=== PATIENT | male | born 1930 | race Caucasian/White ===

== ENCOUNTER 2016-07-13 14:14 | Inpatient (IN) | payer MEDICARE ==
[2016-07-13 16:01] LABS: Basophils % (A) 1 %; CH 31.7; CHCM 34.8; Eosinophils # (A) 0.1 k/uL (0-0.7); Eosinophils % (A) 1 %; HCT 40.6 % (39.0-53.0); HDW 2.71; HGB 13.2 gm/dL (13.0-17.5); Luc # (Auto) 0.17; Luc % (Auto) 2; Lymphocytes # (A) 1.4 k/uL (1.0-4.8); Lymphocytes % (A) 20 %; MCH 29.8 pg (25.0-35.0); MCHC 32.6 g/dL (31.0-37.0); MCV 91.5 fL (80.0-100.0); Mean Platelet Volume 7.2; Monocytes # (A) 0.6 k/uL (0-1.0); Monocytes % (A) 9 %; Neutrophils # (A) 4.7 k/uL (1.3-7.7); Neutrophils % (A) 67 %; RBC 4.44 m/uL (4.30-5.90); WBC 7.1 k/uL (3.8-10.6); WBC (Perox) 7.06
[2016-07-13 16:04] LABS: ALT 33 U/L (21-72); AST 24 U/L (17-59); Alkaline Phosphatase 112 U/L (38-126); Anion Gap 14 mmol/L; Blood Urea Nitrogen 17 mg/dL (9-20); Calcium 9.6 mg/dL (8.4-10.2); Carbon Dioxide 24 mmol/L (22-30); Chloride 104 mmol/L (98-107); Glucose 101 mg/dL (74-99); Magnesium 1.7 mg/dL (1.6-2.3); Non-African American GFR(MDRD) >60 (>60 ml/min/1.73 sqM); Potassium 3.8 mmol/L (3.5-5.1); Sodium 142 mmol/L (137-145); Total Bilirubin 0.8 mg/dL (0.2-1.3); Total Protein 7.4 g/dL (6.3-8.2)
--- NOTE | 2016-07-13 16:04 | XR ---
EXAMINATION TYPE: XR chest 1V portable DATE OF EXAM: 07/13/2016 3:57 PM COMPARISON: 05/23/2013 INDICATION: Pain altered mental status history of heart attack TECHNIQUE: Single frontal view of the chest is obtained. FINDINGS: The heart size is normal. The pulmonary vasculature is normal. The lungs are clear. IMPRESSION: 1. No acute pulmonary process.
[2016-07-13 16:14] LABS: Creatine Kinase 208 U/L (55-170)
--- NOTE | 2016-07-13 16:23 | ED ---
Psych HPI - General Source: patient, family, RN notes reviewed Mode of arrival: wheelchair - History of Present Illness MD Complaint: other <Billy Pappas - Last Filed: 07/13/16 16:55> <Keegan Cannon - Last Filed: 07/13/16 20:39> <Dallin Bryant - Last Filed: 07/13/16 23:55> - General Chief Complaint: Psychiatric Symptoms Stated Complaint: Mental Health Time Seen by Provider: 07/13/16 14:20 - History of Present Illness Initial Comments: This is a 85-year-old male history of dementia who is brought in by family for evaluation for abnormal behavior. He did very combative. His was very to for many many years is not home because of rehab after medical treatment. He has become confused verbally abusive verbally combative. Family brought him in for evaluation. No reports of fevers chills nausea vomiting sweats or trauma. ( Billy Pappas) - Related Data Home Medications Medication Instructions Recorded Confirmed Atorvastatin [Lipitor] 20 mg PO DAILY 07/13/16 07/13/16 Donepezil [Aricept] 10 mg PO HS 07/13/16 07/13/16 Levothyroxine Sodium [Synthroid] 50 mcg PO DAILY 07/13/16 07/13/16 Lisinopril [Zestril] 20 mg PO DAILY 07/13/16 07/13/16 Omeprazole [PriLOSEC] 20 mg PO AC-BRKFST 07/13/16 07/13/16 traZODone HCL 50 mg PO BID 07/13/16 07/13/16 Allergies Allergy/AdvReac Type Severity Reaction Status Date / Time No Known Allergies Allergy Verified 07/13/16 14:37 Review of Systems ROS Other: All systems not noted in ROS Statement are negative. <Billy Pappas - Last Filed: 07/13/16 16:55> ROS Other: All systems not noted in ROS Statement are negative. <Keegan Cannon - Last Filed: 07/13/16 20:39> ROS Other: All systems not noted in ROS Statement are negative. <Dallin Bryant - Last Filed: 07/13/16 23:55> ROS Statement: Those systems with pertinent positive or pertinent negative responses have been documented in the HPI. Past Medical History Past Medical History: Dementia, GERD/Reflux, Hyperlipidemia, Thyroid Disorder History of Any Multi-Drug Resistant Organisms: None Reported Past Surgical History: Heart Catheterization With Stent, Orthopedic Surgery Past Psychological History: No Psychological Hx Reported Smoking Status: Never smoker Past Alcohol Use History: Occasional Past Drug Use History: None Reported <Billy Pappas - Last Filed: 07/13/16 16:55> General Exam Limitations: altered mental status General appearance: alert, in no apparent distress Head exam: Present: atraumatic, normocephalic, normal inspection Eye exam: Present: normal appearance, PERRL, EOMI. Absent: scleral icterus, conjunctival injection, periorbital swelling ENT exam: Present: normal exam, mucous membranes moist Neck exam: Present: normal inspection. Absent: tenderness, meningismus, lymphadenopathy Respiratory exam: Present: normal lung sounds bilaterally. Absent: respiratory distress, wheezes, rales, rhonchi, stridor Cardiovascular Exam: Present: normal rhythm, tachycardia, normal heart sounds. Absent: systolic murmur, diastolic murmur, rubs, gallop, clicks GI/Abdominal exam: Present: soft, normal bowel sounds. Absent: distended, tenderness, guarding, rebound, rigid Extremities exam: Present: normal inspection, full ROM, normal capillary refill. Absent: tenderness, pedal edema, joint swelling, calf tenderness Back exam: Present: normal inspection Neurological exam: Present: alert, oriented X3, CN II-XII intact Psychiatric exam: Present: normal affect, normal mood Skin exam: Present: warm, dry, intact, normal color. Absent: rash <Billy Pappas - Last Filed: 07/13/16 16:55> <Keegan Cannon - Last Filed: 07/13/16 20:39> <Dallin Bryant - Last Filed: 07/13/16 23:55> - General Exam Comments Initial Comments: Is a well-developed well-nourished awake alert male the patient was noted to be very combative upon arrival and did require 4-point restraints initially. (Billy Pappas) Course <Billy Pappas - Last Filed: 07/13/16 16:55> <Keegan Cannon - Last Filed: 07/13/16 20:39> <Dallin Bryant - Last Filed: 07/13/16 23:55> Vital Signs 07/13/16 07/13/1607/13/17 14:37 17:35 23:27 Temperature 97.4 F L Pulse Rate 130 H 87 89 Respiratory 18 18 20 Rate Blood Pressure 163/78 151/85 163/89 O2 Sat by Pulse 97 97 96 Oximetry - Reevaluation(s) Reevaluation #1: 07/13/16 16:57 The patient is more cooperative at this time. He is agreed to go for CAT scan. (Billy Pappas) Reevaluation #2: 07/13/16 16:57 The patient will be endorsed to Dr. Cannon who will make the final disposition. ( iBlly Pappas) Procedures - Restraint - Face to Face Restraint Occurrence 1 Patient's Immediate Situation: Endangers others' safety Patient's Reaction to the Intervention: Uncooperative, Angry, Belligerent Patient's Medical & Behavioral Condition: Awake, Alert, Agitated Need to Continue or Terminate Restraint or Seclusion: Continue Face to Face Eval of Restraint Date: 07/13/16 Face to Face Eval of Restraint Time: 14:20 <Billy Pappas - Last Filed: 07/13/16 16:55> Medical Decision Making - Lab Data Result diagrams: 07/13/16 15:40 07/13/16 15:40 - EKG Data -: EKG Interpreted by Me EKG shows normal: sinus rhythm (Sinus rhythm rate was 97 [place] interval 150 to QRS duration 90 QT/QTC of 376/477 occasional PVCs no acute ST-T wave changes.) - Radiology Data Radiology results: report reviewed (I did review the x-ray report no acute findings are seen.), image reviewed <Billy Pappas - Last Filed: 07/13/16 16:55> - Lab Data Result diagrams: 07/13/16 15:40 07/13/16 15:40 <Keegan Cannon - Last Filed: 07/13/16 20:39> - Lab Data Result diagrams: 07/13/16 15:40 07/13/16 15:40 <Dallin Bryant - Last Filed: 07/13/16 23:55> - Medical Decision Making Dr. Bryant will be taking over the care of this patient at 9 PM (Keegan Cannon) Patient seen by mental health services, who will admit. Patient reevaluated by myself. Patient does not recall earlier episodes and does seem frustrated. Positive clinical certificate completed. (Dallin Bryant) - Lab Data Lab Results 07/13/16 07/13/16 07/13/16 Range/Units 15:40 15:40 15:40 WBC 7.1 (3.8-10.6) k/uL RBC 4.44 (4.30-5.90) m/uL Hgb 13.2 (13.0-17.5) gm/dL Hct 40.6 (39.0-53.0) % MCV 91.5 (80.0-100.0) fL MCH 29.8 (25.0-35.0) pg MCHC 32.6 (31.0-37.0) g/dL RDW 13.0 (11.5-15.5) % Plt Count 293 (150-450) k/uL Neutrophils % 67 % Lymphocytes % 20 % Monocytes % 9 % Eosinophils % 1 % Basophils % 1 % Neutrophils # 4.7 (1.3-7.7) k/uL Lymphocytes # 1.4 (1.0-4.8) k/uL Monocytes # 0.6 (0-1.0) k/uL Eosinophils # 0.1 (0-0.7) k/uL Basophils # 0.0 (0-0.2) k/uL Sodium 142 (137-145) mmol/L Potassium 3.8 (3.5-5.1) mmol/L Chloride 104 (98-107) mmol/L Carbon Dioxide 24 (22-30) mmol/L Anion Gap 14 mmol/L BUN 17 (9-20) mg/dL Creatinine 1.14 (0.66-1.25) mg/dL Est GFR (MDRD) Af Amer >60 (>60 ml/min/1.73 sqM) Est GFR (MDRD) Non-Af >60 (>60 ml/min/1.73 sqM) Glucose 101 H (74-99) mg/dL Calcium 9.6 (8.4-10.2) mg/dL Magnesium 1.7 (1.6-2.3) mg/dL Total Bilirubin 0.8 (0.2-1.3) mg/dL AST 24 (17-59) U/L ALT 33 (21-72) U/L Alkaline Phosphatase 112 (38-126) U/L Total Creatine Kinase 208 H (55-170) U/L CK-MB (CK-2) 2.1 (0.0-2.4) ng/mL CK-MB (CK-2) Rel Index 1.0 Troponin I <0.012 (0.000-0.034) ng/mL Total Protein 7.4 (6.3-8.2) g/dL Albumin 4.2 (3.5-5.0) g/dL Disposition <Billy Pappas - Last Filed: 07/13/16 16:55> <Keegan Cannon - Last Filed: 07/13/16 20:39> <Dallin Bryant - Last Filed: 07/13/16 23:55> Clinical Impression: Adjustment reaction, Agitation Disposition: TRANSFER TO PSYCH HOSP/UNIT
[2016-07-13 16:27] LABS: Creatine Kinase MB 2.1 ng/mL (0.0-2.4); Troponin I <0.012 ng/mL (0.000-0.034)
--- NOTE | 2016-07-13 17:17 | CT ---
EXAMINATION TYPE: CT brain wo con DATE OF EXAM: 07/13/2016 5:14 PM COMPARISON: NONE HISTORY: Per patient family mental status changes and agitation. History of dementia CT DLP: 1199 mGycm Automated exposure control for dose reduction was used. FINDINGS: There is mild prominence of the ventricles. There is no mass effect or midline shift. There is no sig n of intracranial hemorrhage. Calvarium is intact. IMPRESSION: Normal pressure type hydrocephalus. No acute intracranial abnormality.
[2016-07-13] MEDS ORDERED: LORazepam 1 MG TAB PO STA (23:49)
[2016-07-14 00:51] VITALS: BMI 28.8
[2016-07-14] MEDS ORDERED: ZIPRASIDONE 20 MG VIAL IM PRN (00:56)
[2016-07-14] MEDS ORDERED: ACETAMINOPHEN TAB 325 MG TAB PO PRN (00:56)
[2016-07-14] MEDS ORDERED: MAG HYDROX/AL HYDROX/SIMETH 30 ML CUP PO PRN (00:56)
[2016-07-14] MEDS ORDERED: MAGNESIUM HYDROXIDE 2,400 MG/10 ML CUP PO PRN (00:56)
[2016-07-14] MEDS ORDERED: LORazepam 1 MG TAB PO PRN (01:00)
[2016-07-14] MEDS ORDERED: LORazepam 2 MG/ML SYRINGE IM PRN (01:00)
[2016-07-14] MEDS: LEVOTHYROXINE 50 MCG TAB PO SCH ×2 (06:31→09:29)
[2016-07-14] MEDS ORDERED: traZODone HCL 50 MG TAB PO SCH (09:00)
[2016-07-14] MEDS: ATORVASTATIN 20 MG TAB PO SCH (09:29)
[2016-07-14] MEDS: LISINOPRIL 20 MG TAB PO SCH (09:29)
[2016-07-14] MEDS: PANTOPRAZOLE 40 MG TABLET PO SCH (09:30)
--- NOTE | 2016-07-14 12:45 | HP ---
DATE OF ADMISSION: CHIEF COMPLAINT: Confusion and delirium. This is an 85-year-old male with past medical history significant for dementia, presents to the hospital with worsening agitation and delirium. Patient was admitted to the Psych floor, currently is alert, awake, following commands, not oriented to self or place, denying chest pain, shortness of breath, nausea, vomiting, abdominal pain. There is no ( ), blurry vision, ringing in the ears or dysuria. REVIEW OF SYSTEMS: All 14 systems reviewed and negative, except as above. ALLERGIES: No known drug allergy. PAST MEDICAL AND SURGICAL HISTORY: 1. Hyperlipidemia. 2. Hypertension. 3. Advanced dementia. 4. Seizure disorder. 5. Anxiety. 6. Depression. 7. Hypothyroidism. 8. GERD. HOME MEDICATIONS: 1. Lipitor. 2. Depakote. 3. Aricept. 4. Lexapro. 5. Ativan. 6. Synthroid. 7. Lisinopril. 8. Protonix. FAMILY HISTORY: Reviewed and negative. SOCIAL HISTORY: Patient denying tobacco, alcohol or drug abuse. ALLERGIES: No known drug allergy. PHYSICAL EXAMINATION: Reviewed stable vital signs. GENERAL: In his stated age in no acute distress. PSYCH: Alert and awake, but not oriented to self or place. Following commands. HEENT: Atraumatic, normocephalic ( ). NECK: Supple, no masses, no thyromegaly. LUNGS: Clear to auscultation bilaterally. HEART: S1, S2, slightly tachycardic in the upper 90s. EXTREMITY: No edema. ABDOMEN: Soft, no tenderness, positive bowel sounds in the upper quadrant. SKIN: No rash or skin break. NEURO: No focal deficit, gait is stable, ambulated without assistance. IMAGING AND LABS: Reviewed. ASSESSMENT AND PLAN: 1. Dementia with worsening agitation and delirium, patient is on Aricept. Follow up with primary psychiatric recommendation regarding management for above symptoms. 2. Hyperlipidemia, continue on Lipitor. 3. Hypertension, controlled with continuing on lisinopril. 4. Seizure disorder, will continue with Depakote, seems to be stable. 5. Gastroesophageal reflux disease, will continue Protonix. 6. Patient is very difficult to obtain information, due to advanced dementia and most of the notes and information was due to collateral data gathering and patient's information as well. 7. Discharge planning per primary team recommendation.
--- NOTE | 2016-07-14 16:40 | HP ---
DATE OF ADMISSION: IDENTIFYING DATA: The patient is an 85-year-old male who was brought in to the emergency room by his family for evaluation, as he has dementia with aggressive behavior. Patient was admitted to the mental health unit on an involuntary basis. As the patient is very forgetful and confused, the history was taken from clinical interview with him in addition I contacted the patient's daughter Justin, who has been living with the patient since December of 2014. HISTORY OF PRESENT ILLNESS: Patient started to experience poor memory over the last 16 months; however, it has been getting worse over last 6 months. Patient was able to drive himself on May 06, 2016. At that time his daughter did realize that he had been getting lost and could not return home, so they took the car keys from him. The patient's daughter was hired by the state to take care of her parents, as both of them were diagnosed with dementia; however, her mother is in late-stage dementia. The patient's of more than 50 years was recently placed in a jail, as she was deteriorating physically and mentally. The patient was very upset when I talked to him, and he stated that he wanted to go to stay with his , and he has been feeling betrayed by his son, who brought him to the emergency room, saying, "My son is living in [place] and I don't know why he put me in this place." The patient's son Braulio did file the petition, and according to the allegation on the petition, the patient has been acting in threatening and aggressive ways, especially to the staff of the jail where his staying. Also, according to the petition, the patient has been more confused, disruptive, repeating himself, uncontrollable rage and anger outbursts, was throwing clothes, cell phone, remote control, and he has no memory of this aggressive and angry behavior. The patient endorses a lot of grief, as he is feeling that his has been taken away from him. He kept asking me the same question: "Can you transfer me to the same place where my is staying?" He is endorsing significant anxiety symptoms of being here and feeling "I am mentally and physically fine. I don't need this place." The patient's daughter stated that the patient has been refusing his medication for his medical condition since his was placed in the jail, saying "Let me . There is no purpose to my life anymore." PAST PSYCHIATRIC HISTORY: There is no previous inpatient psychiatric hospitalization. There is no previous suicidal attempt. He never was on any antidepressant medication. He was diagnosed with Alzheimer's dementia 8 months ago and he has been on Aricept prescribed by Dr. Foster. FAMILY PSYCHIATRIC HISTORY: Patient's father had severe dementia. His mother had mental illness and was in and out of psychiatric hospitals; however, patient's daughter does not know the diagnosis. There is no suicide in the family. CURRENT MEDICATIONS: 1. Lipitor 20 mg daily. 2. Synthroid 50 mcg daily. 3. Lisinopril 20 mg daily. 4. Prilosec 20 mg daily. 5. Aricept 10 mg at bedtime. 6. Recently his primary care physician added Trazodone 50 mg b.i.d. ALLERGIES: NO KNOWN DRUG ALLERGIES. CHEMICAL DEPENDENCY HISTORY: He denied any nicotine or alcohol use. He said, "I tried to smoke one time at age 20 and I didn't like it." SOCIAL HISTORY: The patient graduated from high school. He has been 4 more than 50 years. They had 3 children, 2 boys and 1 girl. They lost the oldest one 33 years ago with a car accident. As I mentioned before, his son Braulio is living in [place], [place], and his daughter Justin has been the caregiver for almost 16 months and living with them. The patient was in the [employer] for 4 years. 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 He retired from [employer] after 35 years. LEGAL HISTORY: No previous legal problem. He denied any history of childhood abuse. MENTAL STATUS EXAMINATION: The patient is a male who appears younger than stated age. He is dressed in his own clothing. Hygiene and grooming are fair. Patient has expressive aphasia. He was able to tell me his first and last name, but regarding his date of , he said, "July 19, 1950." He was very anxious and nervous and asked me more than once, "I want to go home now." His eye contact is appropriate. His speech, as I mentioned before, is non-spontaneous. At times he repeats himself. He could not remember his 's name, and he started saying, "It is terrible what is happening to me. I don't remember any names." He is perseverating about his and why his kids, especially his son, have to put her in a jail. He denied any suicidal or homicidal ideation. His thinking is very concrete. Affect is flat. There is no psychomotor agitation; however, after I finished the interview with him, he was pacing back and forth, trying to find an exit to leave the hospital. There is no overt evidence of psychosis and he does not appear hypomanic or manic. His insight and judgment are impaired. Cognitive function: he is alert and oriented to person; however, he could not tell me the place, and also he could not tell me today's date. He recalled zero of 3 objects after several minutes. He scored 11 out of 30 in the mini mental status examination. Intellectual functioning is average. Strength : Patient physically seems stable. Weaknesses: Cognitive impairment. Resistant to get any help. Grieving the loss of his of more than 55 years, as she was moved to a jail. IMPRESSION: 1. 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 Acute grief reaction. 3. Hyperlipidemia. 4. Hypothyroidism. 5. Gastroesophageal reflux disease. 6. Hypertension. 7. Severe dementia. PLAN: 1. Patient has been admitted to the mental health unit on an involuntary basis. 2. I discussed with his daughter pursuing guardianship, as the patient has severe impairment in his cognitive function. 3. I will start the patient on mood stabilizer to control his combative and aggressive behavior. I will start him on a low dose of Depakote and will gradually titrate this. 4. Also he will be started on Lexapro in the morning to eliminate his anxiety and depressive symptoms. 5. The patient will participate in group therapy as tolerated. 6. Length of stay 7 to 10 days. 7. Team treatment will be working on discharge plan when he is stable. FREDDY
[2016-07-14] MEDS ORDERED: WATER FOR INJECTION, STERILE 10 ML IV ONE (19:28)
[2016-07-14] MEDS: DIVALPROEX ER 500 MG TAB.ER.24H PO SCH (20:20)
[2016-07-14] MEDS: DONEPEZIL 10 MG TAB PO SCH (20:20)
[2016-07-15] MEDS: LEVOTHYROXINE 50 MCG TAB PO SCH (08:14)
[2016-07-15] MEDS: PANTOPRAZOLE 40 MG TABLET PO SCH (08:14)
[2016-07-15] MEDS: ATORVASTATIN 20 MG TAB PO SCH (08:14)
[2016-07-15] MEDS: LISINOPRIL 20 MG TAB PO SCH (08:14)
[2016-07-15] MEDS ORDERED: ESCITALOPRAM 5 MG TAB PO SCH (09:00)
--- NOTE | 2016-07-15 16:19 | P.PN ---
Progress Note - Text DATE OF SERVICE: SUBJECTIVE: "CAN I GO HOME ,I AM FINE ",patient is confused but pleasant ,talked in detail about how much he is missing his who was placed in custodial and how much he is missing to go to play Golf with old friends,patient does feel that his children controlling his life and decided to place his in [facility] ,he said"She is forgetful but I can take care of her " PER NURSING STAFF: Patient is confused but compliant with medications ,easy to redirect ,able to take care of his basic ADLs on his own ,no self- harm behavior or aggressive behavior VITALS:Stable MENTAL STATUS EXAM: Patient is casually dressed ,fair grooming ,speech is coherent ,tangential , some expressive aphasia,less anxious than yesterday ,able to talk about his hobbies"Playing golf for 40 years",denies any psychotic features ,denies any suicidal or homicidal ideation,alert and oriented to person ,insight and judgment are limited,severe cognitive deficit A/P:As patient has been compliant with medications ,he did not demonstrate any self-harm or aggressive behavior ,will recommend outpatient treatment and counseling for his grief ,Lexapro will be increased to 10 mg ,will be discharged Tomorrow after court hearing
[2016-07-15] MEDS: DIVALPROEX ER 500 MG TAB.ER.24H PO SCH (21:42)
[2016-07-15] MEDS: DONEPEZIL 10 MG TAB PO SCH (21:42)
[2016-07-16 06:15] VITALS: TEMP 98.1
[2016-07-16] MEDS: LISINOPRIL 20 MG TAB PO SCH (08:45)
[2016-07-16] MEDS: PANTOPRAZOLE 40 MG TABLET PO SCH (08:45)
[2016-07-16] MEDS: ATORVASTATIN 20 MG TAB PO SCH (08:45)
[2016-07-16] MEDS: LEVOTHYROXINE 50 MCG TAB PO SCH (08:45)
[2016-07-16 08:48] VITALS: BP 142/74; PULSE 92; RESP 16
[2016-07-16] MEDS ORDERED: ESCITALOPRAM 10 MG TAB PO SCH (09:00)
--- NOTE | 2016-07-17 11:13 | DS ---
DATE OF ADMISSION: 07/13/2016 DATE OF DISCHARGE: 07/16/2016 CONSULTATION PHYSICIAN: Rachel. CONSULTING PROVIDER: Dr. Shady Min. CONSULT REASON: For medical management. CONSULTING PROVIDER NOTIFIED: Yes. PATIENT'S PRIMARY CARE PHYSICIAN: Dr. Foster. DISCHARGE DIAGNOSIS: Major neurocognitive disorder due to Alzheimer dementia with depressed mood and behavior disturbance. BRIEF SUMMARY OF ADMISSION NOTE: Patient was admitted to the mental health unit on petition filled by his son Braulio. Please refer to my initial history and physical examination dictated on July 14, 2016. SUMMARY OF HOSPITAL COURSE: The patient was originally admitted to the mental health unit on petition and clinical certificate and with it pursued involuntary admission. Once he was admitted to the mental health unit, patient was compliant with medication; however, due to his memory problem he was not able to participate in group therapy, but he has been able to take care of his basic hygiene also able to follow up all our recommendation. Patient has a lot of grief especially for the last couple of weeks since his children placed his of more than 50 years in extended demented unit. Patient was started on escitalopram or Lexapro and Depakote or valproic acid at bedtime for behavior disturbance. During his stay on the unit, patient did not show any aggressive or combative behavior. He was very pleasant on approach, just alert to the person, but not able to remember even his date of . He did remember the month and the date, but he could not remember the year that he was born. We did have court hearing on July 16, but patient declined to go to the court. As the patient had been stable for the last 72 hours, I did recommend from the court outpatient court order for 90 days to assure his compliance with medication and also for counseling regarding his grief reaction. Throughout his hospitalization he denied any suicidal or homicidal ideation. He denied any psychotic feature and he was willing to pursue outpatient treatment. MENTAL STATUS EXAMINATION: At the time of his discharge, the patient is casually dressed, fair grooming. Speech is not continuous, but coherent. Very pleasant on approach, confused, but denied any depressive symptoms. Denied any anxiety symptoms. No impulse control. No evidence of ( ) hypomania. His cognitive ability is still poor and it remained the same across his hospitalization. As I mentioned before, he was alert and oriented to person only. There is no verbal or physical aggression observed. IMPRESSION: 1. Major neurocognitive disorder due to Alzheimer dementia with depressed mood and behavior disturbance. 2. Grief reaction. 3. Rule out adjustment disorder with mixed anxiety and depression. PLAN: 1. Patient was discharged from the inpatient after the court hearing and he has to continue 90 days outpatient treatment. 2. Patient will see Dr. Foster his primary care physician in one week. 3. Patient was scheduled to see geriatric psychiatry at [facility] in one week. 4. Patient was discharged home where his daughter Justin will be the primary animal care worker for him. 5. Patient was given prescription for: 1) Lexapro 10 mg for 4 weeks supply for depression and anxiety. 2) Depakote or valproic acid extended release 500 mg at bedtime for behavior disturbance. 3) I discontinued the trazodone that was prescribed by his primary care physician. The patient will continue on the rest of his medication prescribed by Dr. Foster. I do recommend to check his Depakote level and his liver function tests in 5 days from the discharge. PROGNOSIS: Guarded due to his declining in his cognitive function.
== END 2016-07-16 13:32 | disposition home or self-care (01) | DRG 882 ==
LOC: EC 14:14 → 3MHU 23:28
PROVIDERS: ADMIT Psychiatry & Neurology Psychiatry; ATTEND Psychiatry & Neurology Psychiatry
DX: F43.23 Adjustment disorder with mixed anxiety and depressed mood (principal); F05 Delirium due to known physiological condition; G30.9 Alzheimer's disease, unspecified; F02.81 Dementia in other diseases classified elsewhere, unspecified severity, with behavioral disturbance; G40.909 Epilepsy, unspecified, not intractable, without status epilepticus; E03.9 Hypothyroidism, unspecified; E78.5 Hyperlipidemia, unspecified; I10 Essential (primary) hypertension; K21.9 Gastro-esophageal reflux disease without esophagitis; I25.10 Atherosclerotic heart disease of native coronary artery without angina pectoris; Z79.899 Other long term (current) drug therapy; Z95.5 Presence of coronary angioplasty implant and graft
CPT/HCPCS: 36415; 70450; 71010; 80053; 82075; 82550; 82553; 83735; 84443; 84484; 85025; 93005; 99285